=== PATIENT | female | born 2000 | race Caucasian/White ===

== ENCOUNTER 2019-03-30 18:22 | Emergency (ER) | payer OTHER, SELFPAY ==
[2019-03-30 18:27] VITALS: BP 124/84; PULSE 85; RESP 16; TEMP 36.8; O2SAT 100
--- NOTE | 2019-03-30 18:31 | ED.URI ---
HPI - URI/Sore Throat General Chief Complaint: Upper Respiratory Infection Stated Complaint: Sore Throat, Vomiting Time Seen by Provider: 03/30/19 18:26 Source: patient and RN notes reviewed Mode of arrival: ambulatory Limitations: no limitations History of Present Illness HPI Narrative: A 19 y/o female presents to the ED with multiple, worsening, URI symptoms for the past week. She states that she has had a sore throat, nasal congestion, rhinnorrhea, sneezing, and a clear/yellow productive cough for the past week. She also reports that she have been vomiting one time in the morning. She notes that she started on BC 3 days ago and has been having some mild facial, hand, and foot swelling since. She denies any fevers, chills, CP, SOB, N/V/D, or ABD pain. MD elicited complaint: other (Multiple) Onset (ago): week(s) (1) Consistency: progressively worsening Description of mucous: clear and yellow Associated symptoms: rhinorrhea, nasal congestion, sore throat, cough (clear/yellow productive) and other (sneezing) Related Data Home Medications Medication Instructions Recorded Confirmed norgestimate-ethinyl estradiol tablet 03/30/19 [Sprintec (28)] Allergies Allergy/AdvReac Type Severity Reaction Status Date / Time sulfamethoxazole AdvReac Mild Nausea and Verified 03/30/19 18:36 Vomiting trimethoprim AdvReac Mild Nausea and Verified 03/30/19 18:36 Vomiting Review of Systems Review of Systems: All systems reviewed & are unremarkable except as noted in HPI and below Constitutional: Constitutional: Denies chills and Denies fever(s) ENT: Denies nasal congestion, Denies nasal discharge, Denies sore throat and Reports other (sneezing) Cardiovascular: Cardiovascular: Denies chest pain Respiratory: Respiratory: Reports cough (clear/yellow productive) and Denies dyspnea Gastrointestinal: Gastrointestinal: Denies abdominal pain, Denies diarrhea, Denies nausea and Denies vomiting PMF Past Medical History Medical History (Updated 03/30/19 @ 18:50 by Bernard Meyers) Healthy female Surgical History Surgical History (Updated 03/30/19 @ 18:50 by Bernard Meyers) No history of previous surgery Social History Social History (Updated 03/30/19 @ 18:50 by Bernard Meyers) Smoking status: Current some day smoker Gender identity (if verbalized by the patient): Female Exam Narrative: Exam Narrative: General appearance: Well-developed, well-nourished Skin: Normal color Head: Normocephalic, nontraumatic Eyes: Clear conjunctiva ENT: Oropharynx normal, ears normal, nose normal Neck: Supple, nontender Chest and respiratory: Airway patent, no respiratory distress, no accessory muscle use Heart: Regular rate/rhythm Abdomen: Soft, nontender, no organomegaly, quiet bowel sounds Vascular: Normal peripheral pulses, normal capillary refill. Musculoskeletal: Normal range of motion, nontender back Neurologic: Alert and oriented ?3, CLINICAL PSYCHOLOGIST LICENSED is normal as tested, no gross motor deficit Course Course Emergency Course: Stable Vital Signs Vital signs: Vital Signs Temperature 36.8 C 03/30/19 18:27 Pulse Rate 85 03/30/19 18:27 Respiratory Rate 16 03/30/19 18:27 Blood Pressure 124/84 03/30/19 18:27 Pulse Oximetry 100 03/30/19 18:27 Temperature 36.8 C 03/30/19 18:27 Pulse Rate 85 03/30/19 18:27 Respiratory Rate 16 03/30/19 18:27 Blood Pressure 124/84 03/30/19 18:27 Pulse Oximetry 100 03/30/19 18:27 MDM - URI/Sore Throat MDM Narrative Medical decision making narrative: Viral pharyngitis, strep throat is my concern. Rapid strep ordered. Further plan to follow Differential Diagnosis Differential diagnosis: Likely uppe
[2019-03-30 19:19] VITALS: BP 118/84; PULSE 70; RESP 15; TEMP 36.7; O2SAT 100
== END 2019-03-30 19:22 | disposition home or self-care (01) ==
LOC: ANHED 18:54
PROVIDERS: Emergency Provider Emergency Medicine
DX: J06.9 Acute upper respiratory infection, unspecified (principal); F17.200 Nicotine dependence, unspecified, uncomplicated
CPT/HCPCS: 99283

== ENCOUNTER 2019-04-01 01:46 | Emergency (ER) | payer OTHER, SELFPAY ==
--- NOTE | ~2019-04-01 | XR_ITS ---
XR chest 2V DATE: 04/01/2019 02:28 INDICATION: Cough, shortness of breath TECHNIQUE: PA and lateral views COMPARISON: None FINDINGS: There is levoscoliosis of the thoracolumbar spine. Normal heart size. No hilar or mediastinal enlargement. No pulmonary infiltrate or consolidation, ple ural effusion or pulmonary vascular congestion or pneumothorax. IMPRESSION: No active cardiopulmonary disease Reviewed, dictated and finalized at location [facility]. [facility]
--- NOTE | 2019-04-01 01:53 | ED.GENADULT ---
HPI - General Adult General Chief complaint: Recheck/Abnormal Lab/Rx Stated complaint: sob and red bumps on throat Time Seen by Provider: 04/01/19 01:51 Source: patient and RN notes reviewed Mode of arrival: ambulatory Limitations: no limitations History of Present Illness HPI narrative: Pt is a 19 y/o female who presents to the ED with c/o a sore throat which began a week ago. Pt was seen yesterday at the ED, but she denies being swabbed for the flu. She reports she was prescribed nasal spray which she has been taking as prescribed. Pt reports she has noticed bumps in the back of her mouth which prompted her to come back to the ED tonight to be evaluated. She also reports a cough, rhinorrhea, and vomiting, but denies any nausea. She reports she has only vomited twice since the onset of her symptoms. MD complaint: Sore throat Onset (ago): week(s) (1 week ago) Location: mouth (throat) Radiation: non-radiation Pain Consistency: constant Relieving factors: none (tried medications without relief) Associated symptoms: cough, nausea/vomiting (vomiting) and other (rhinorrhea) Related Data Home Medications Medication Instructions Recorded Confirmed norgestimate-ethinyl estradiol tablet 03/30/19 [Sprintec (28)] Allergies Allergy/AdvReac Type Severity Reaction Status Date / Time sulfamethoxazole AdvReac Mild Nausea and Verified 03/30/19 18:36 Vomiting trimethoprim AdvReac Mild Nausea and Verified 03/30/19 18:36 Vomiting Review of Systems Review of Systems: All systems reviewed & are unremarkable except as noted in HPI and below ENT: Reports nasal discharge (rhinorrhea) and Reports sore throat Respiratory: Respiratory: Reports cough Gastrointestinal: Gastrointestinal: Denies nausea and Reports vomiting [facility] Past Medical History Medical History (Updated 04/01/19 @ 02:47 by David Bailey DO) Healthy female Surgical History Surgical History (Updated 03/30/19 @ 18:50 by Bernard Meyers) No history of previous surgery Social History Social History (Updated 03/30/19 @ 18:50 by Bernard Meyers) Smoking status: Current some day smoker Gender identity (if verbalized by the patient): Female Exam Narrative: Exam Narrative: APPEARANCE: No acute distress, nontoxic, resting in bed EYES: EOMI HEENT: Normocephalic, atraumatic, TMs clear bilaterally, bilateral turbinates boggy, erythema the posterior pharynx and tonsils, minimal white exudate, uvula midline, no trismus, tolerating own secretions RESPIRATORY: No respiratory distress Clear to auscultation bilaterally with no rhonchi wheezing or rales. CARDIOVASCULAR: Regular rate and rhythm without murmurs rubs or gallops. ABDOMINAL: Soft, nontender, nondistended, no rebound or guarding MUSCULOSKELETAl: Moves all extremities. No clubbing, cyanosis or edema. NEURO: Awake and alert. Following commands, speech normal, no focal deficits SKIN:: Warm, dry. No rashes lesions or abrasions PSYCHIATRIC: Normal affect/mood, Course Course Emergency Course: Discussed with patient results of workup and diagnosis. Discussed need for follow-up with primary care, proper use of medication, and reasons to return to the emergency department. Patient understands and agrees to current treatment plan Vital Signs Vital signs: Vital Signs Temperature 98.3 F 04/01/19 01:57 Pulse Rate 84 04/01/19 01:57 Respiratory Rate 16 04/01/19 01:57 Blood Pressure 124/86 04/01/19 01:57 Pulse Oximetry 100 04/01/19 01:57 Temperature 98.3 F 04/01/19 01:57 Pulse Rate 84 04/01/19 01:57 Respiratory Rate 16 04/01/19 01:57 Blood Pressure 124/86 04/01/19 01:57 Pulse Oximetry 100 04/01/19 01:57 Medical Decision Making Vital Signs Vital Signs: Vital Signs Temperature 98.3 F 04/01/19 01:57 Pulse Rate 84 04/01/19 01:57 Respiratory Rate 16 04/01/19 01:57 Blood Pressure 124/86 04/01/19 01:57 Pulse Oximetry 100 04/01/19 01:57 Temperature 98.3 F
[2019-04-01 01:57] VITALS: BP 124/86; PULSE 84; RESP 16; TEMP 36.8; O2SAT 100
[2019-04-01 03:06] VITALS: BP 112/88; PULSE 76; RESP 19; TEMP 36.4; O2SAT 100
[2019-04-01] MEDS: AMOXICILLIN 500 MG CAPSULE PO (03:07)
== END 2019-04-01 03:07 | disposition home or self-care (01) ==
PROVIDERS: Emergency Provider Emergency Medicine
DX: J02.9 Acute pharyngitis, unspecified (principal); F17.200 Nicotine dependence, unspecified, uncomplicated
CPT/HCPCS: 71046; 87081; 87804; 87880; 99283; A9270

== ENCOUNTER 2019-10-07 19:42 | Emergency (ER) | payer OTHER, SELFPAY ==
[2019-10-07 19:44] VITALS: BP 132/83; PULSE 103; RESP 19; TEMP 36.3; O2SAT 100
--- NOTE | 2019-10-07 20:03 | ED.FEMALEGU ---
HPI - Female Genitourinary General Chief complaint: Urogenital-Female Stated complaint: urinary frequency Time Seen by Provider: 10/07/19 19:51 History of Present Illness HPI Narrative: She reports urinary frequency and dysuria for the past week. The is associaed with low back pain. No fever, nausea, vomiting, vaginal dyscharge, bleeding. Related Data Home Medications Medication Instructions Recorded Confirmed No Home Medications 10/07/19 10/07/19 Allergies Allergy/AdvReac Type Severity Reaction Status Date / Time sulfamethoxazole AdvReac Mild Nausea and Verified 03/30/19 18:36 Vomiting trimethoprim AdvReac Mild Nausea and Verified 03/30/19 18:36 Vomiting Review of Systems Review of Systems: All systems reviewed & are unremarkable except as noted in HPI and below Constitutional: Constitutional: Denies chills Cardiovascular: Cardiovascular: Denies chest pain Respiratory: Respiratory: Denies dyspnea Gastrointestinal: Gastrointestinal: Denies abdominal pain Genitourinary: Genitourinary: Denies hematuria, Reports nocturia and Reports dysuria Musculoskeletal: Musculoskeletal: Reports back pain [facility] Past Medical History Medical History Healthy female Surgical History Surgical History No history of previous surgery Social History Social History Smoking status: Current some day smoker Gender identity (if verbalized by the patient): Female Exam Const: General: healthy appearing, no acute distress and alert Orientation/consciousness: patient oriented x3 HENMT: Head: normal to inspection Resp: Effort & Inspection: normal respiratory effort Auscultation: clear to auscultation bilaterally Cardio: Rate: regular rate Rhythm: regular rhythm GI: GI Palp: Yes Soft to palpation and Yes Tenderness to palpation present (GI) : External Female Exam: normal external appearance Speculum Exam - Vagina: normal appearance of the vagina and abnormal vaginal discharge Bimanual exam- vagina & uterus: no cervical motion tenderness Course Vital Signs Vital signs: Vital Signs Temperature 36.3 C L 10/07/19 19:44 Pulse Rate 103 H 10/07/19 19:44 Respiratory Rate 19 10/07/19 19:44 Blood Pressure 132/83 10/07/19 19:44 Pulse Oximetry 100 10/07/19 19:44 Temperature 36.3 C L 10/07/19 19:44 Pulse Rate 88 10/07/19 22:20 Respiratory Rate 18 10/07/19 22:20 Blood Pressure 130/78 10/07/19 22:20 Pulse Oximetry 99 10/07/19 22:20 MDM - Female Genitourinary Differential Diagnosis Differential diagnosis: Likely urinary tract infection, bacterial vaginosis, trichomoniasis and cervicitis Medical Records Attestation: I reviewed the patient's medical records. Lab Data Attestation: I reviewed the patient's lab results. Result diagrams: 10/07/19 20:42 10/07/19 20:42 Labs: Lab Results 10/07/19 10/07/19 10/07/19 Range/Units 20:00 20:42 20:42 WBC 8.2 (4.5-10.0) K/mm3 RBC 4.62 (4.2-5.4) M/mm3 Hgb 14.1 (12.0-15.0) g/dL Hct 41.6 (37.0-47.0) % MCV 90.0 (80-100) fl MCH 30.5 (26-34) pg MCHC 33.9 (32-36) g/dl RDW 12.9 (11.5-14.5) % Plt Count 285 (150-375) k/mm3 MPV 11.4 H (7.4-10.4) fl Immature Gran % (Auto) 0.4 (0-0.5) % Neut % (Auto) 57.3 (45.5-73.1) % Lymph % (Auto) 30.3 (18.3-44.2) % [place] % (Auto) 7.8 (2.6-8.5) % Eos % (Auto) 2.9 (0-4.4) % Baso % (Auto) 1.3 H (0.2-1.2) % Lymph # (Auto) 2.49 (0.9-3.2) K/mm3 [place] # (Auto) 0.6 (0.1-0.6) K/mm3 Eos # (Auto) 0.2 (0-0.3) K/mm3 Baso # (Auto) 0.1 (0.0-0.1) K/mm3 Abs Immat Gran (auto) 0.03 (0.00-0.031) K/mm3 Absolute Neuts (auto) 4.7 (1.3-6.7) K/mm3 Absolute Nucleated RBC 0.0 (0.0-0.012) K/mm3 Nucleated RBC % 0.0 (0.0-0
[2019-10-07 20:13] LABS: Add Urine Microscopic? YES; Amorphous Sediment Urine Few; Appearance Urine Cloudy (Clear); Bacteria Urine Trace /hpf; Bilirubin Urine Negative (Negative); Blood Urine 2+ (Negative); Color Urine Yellow (Yellow); Glucose Urine UA Negative (Negative); Ketones Urine Negative (Negative); Leukocyte Esterase Ur Negative LEU/UL (Negative); Mucus Urine Rare /lpf; Nitrate Urine Negative (Negative); Protein Urine Negative (Negative); RBC Urine 0-2 /hpf (0-2); Specific Grav Ur 1.017 (1.001-1.035); Squamous Epithelial Cell Urine Many /hpf (Few); WBC Urine 0-3 /hpf
[2019-10-07 20:50] LABS: Basophils Absolute Auto 0.1 K/mm3 (0.0-0.1); Basophils Percent Auto 1.3 % (0.2-1.2); Eosinophils Absolute Auto 0.2 K/mm3 (0-0.3); Eosinophils Percent Auto 2.9 % (0-4.4); Hematocrit 41.6 % (37.0-47.0); Hemoglobin 14.1 g/dL (12.0-15.0); Immature Granulocyte Absolute 0.03 K/mm3 (0.00-0.031); Immature Granulocyte Percent A 0.4 % (0-0.5); Lymphocytes Absolute Auto 2.49 K/mm3 (0.9-3.2); Lymphocytes Percent Auto 30.3 % (18.3-44.2); Mean Corpuscular HGB Conc 33.9 g/dl (32-36); Mean Corpuscular Hemoglobin 30.5 pg (26-34); Mean Platelet Volume 11.4 fl (7.4-10.4); Monocytes Absolute Auto 0.6 K/mm3 (0.1-0.6); Monocytes Percent Auto 7.8 % (2.6-8.5); Neutrophils Absolute Auto 4.7 K/mm3 (1.3-6.7); Neutrophils Percent Auto 57.3 % (45.5-73.1); Platelet Count Result 285 k/mm3 (150-375); Red Blood Count 4.62 M/mm3 (4.2-5.4); Red Cell Distribution Width 12.9 % (11.5-14.5); White Blood Count 8.2 K/mm3 (4.5-10.0)
[2019-10-07] MEDS: SODIUM CHLORIDE 0.9% IV 1,000 ML 999 ML IV CONT (20:50)
[2019-10-07 21:01] LABS: Alanine Aminotransferase 12 U/L (4-35); Albumin Level 4.7 g/dL (3.5-5.1); Alkaline Phosphatase 50 U/L (38-126); Anion Gap 12.8 mmol/L (7-16); Aspartate Amino Transferase 23 U/L (14-36); Bilirubin,Total 0.4 mg/dL (0.2-1.3); Blood Urea Nitrogen 15 mg/dL (7-17); Calcium 9.4 mg/dL (8.4-10.2); Carbon Dioxide 27 mmol/L (22-30); Chloride 101 mmol/L (98-107); Creatine Kinase 62 U/L (30-135); Estimated CRCL calculation 72 ml/min; Estimated Glomerular Filt Rate > 60; Glucose 85 mg/dL (65-105); Potassium 3.8 mmol/L (3.4-5.0); Sodium 137 mmol/L (137-145)
[2019-10-07] MEDS: cefTRIAXone 250 MG VIAL IM (21:42)
[2019-10-07] MEDS: AZITHROMYCIN 250 MG TABLET 1000 MG PO (21:43)
[2019-10-07] MEDS: metroNIDAZOLE 250 MG TABLET 2000 MG PO (21:43)
[2019-10-07 22:20] VITALS: BP 130/78; PULSE 88; RESP 18; O2SAT 99
== END 2019-10-07 22:20 | disposition home or self-care (01) ==
PROVIDERS: Emergency Provider Emergency Medicine
DX: N72 Inflammatory disease of cervix uteri (principal); F17.200 Nicotine dependence, unspecified, uncomplicated
CPT/HCPCS: 36415; 80053; 81001; 81025; 82550; 85025; 87070; 87491; 87591; 87808; 96360; 96372; 99284; A9270; J0696; J7030

== ENCOUNTER 2019-11-09 22:20 | Emergency (ER) | payer OTHER, SELFPAY ==
[2019-11-09 22:22] VITALS: BP 132/83; PULSE 103; RESP 19; TEMP 36.2; O2SAT 98
[2019-11-09 22:42] LABS: Basophils Absolute Auto 0.1 K/mm3 (0.0-0.1); Basophils Percent Auto 0.9 % (0.2-1.2); Eosinophils Absolute Auto 0.1 K/mm3 (0-0.3); Eosinophils Percent Auto 1.3 % (0-4.4); Hematocrit 45.9 % (37.0-47.0); Hemoglobin 15.8 g/dL (12.0-15.0); Immature Granulocyte Absolute 0.04 K/mm3 (0.00-0.031); Immature Granulocyte Percent A 0.4 % (0-0.5); Lymphocytes Absolute Auto 2.46 K/mm3 (0.9-3.2); Lymphocytes Percent Auto 22.5 % (18.3-44.2); Mean Corpuscular HGB Conc 34.4 g/dl (32-36); Mean Corpuscular Hemoglobin 30.9 pg (26-34); Mean Corpuscular Volume 89.6 fl (80-100); Mean Platelet Volume 11.6 fl (7.4-10.4); Monocytes Absolute Auto 0.8 K/mm3 (0.1-0.6); Monocytes Percent Auto 6.9 % (2.6-8.5); Neutrophils Absolute Auto 7.4 K/mm3 (1.3-6.7); Platelet Count Result 279 k/mm3 (150-375); Red Blood Count 5.12 M/mm3 (4.2-5.4); Red Cell Distribution Width 12.6 % (11.5-14.5); White Blood Count 10.9 K/mm3 (4.5-10.0)
[2019-11-09 22:49] LABS: Add Urine Microscopic? YES; Amorphous Sediment Urine Moderate; Appearance Urine Cloudy (Clear); Bacteria Urine Trace /hpf; Bilirubin Urine Negative (Negative); Blood Urine Negative (Negative); Color Urine Yellow (Yellow); Glucose Urine UA Negative (Negative); Ketones Urine 1+ mg/dL (Negative); Leukocyte Esterase Ur Negative LEU/UL (Negative); Mucus Urine Heavy /lpf; Nitrate Urine Negative (Negative); Protein Urine 1+ mg/dL (Negative); RBC Urine 0-2 /hpf (0-2); Specific Grav Ur 1.024 (1.001-1.035); Squamous Epithelial Cell Urine Moderate /hpf (Few); WBC Urine 0-3 /hpf
[2019-11-09 22:55] LABS: Alanine Aminotransferase 14 U/L (4-35); Albumin Level 5.2 g/dL (3.5-5.1); Alkaline Phosphatase 63 U/L (38-126); Anion Gap 9 mmol/L (8-16); Aspartate Amino Transferase 23 U/L (14-36); Bilirubin,Total 0.9 mg/dL (0.2-1.3); Blood Urea Nitrogen 12 mg/dL (7-17); Calcium 9.6 mg/dL (8.4-10.2); Carbon Dioxide 25 mmol/L (22-30); Chloride 102 mmol/L (98-107); Estimated CRCL calculation 81 ml/min; Estimated Glomerular Filt Rate > 60; Glucose 86 mg/dL (65-105); Lipase 50 U/L (23-300); Sodium 136 mmol/L (137-145)
--- NOTE | 2019-11-09 23:15 | PC.NURSE ---
report received at this time. pt resting on stretcher, denies any needs/concerns. will continue to monitor pt for baseline status changes.
--- NOTE | 2019-11-09 23:18 | ED.ABDPAIN ---
HPI - Abdominal Pain General Chief Complaint: Abdominal Pain Stated Complaint: MY OVARIAN CYST JUST RUPTURED Time Seen by Provider: 11/09/19 22:41 History of Present Illness HPI narrative: Sudden left sided burning abdominal pain for the past few hours. No radiation. Associated with mild nausea. She has never had this pain before. She was recently diagnosed with an ovarian cyst and thinks it may have ruptured. No vaginal bleeding, discharge, diarrhea, constipation. Related Data Home Medications Medication Instructions Recorded Confirmed No Home Medications 10/07/19 10/07/19 Allergies Allergy/AdvReac Type Severity Reaction Status Date / Time sulfamethoxazole AdvReac Mild Nausea and Verified 03/30/19 18:36 Vomiting trimethoprim AdvReac Mild Nausea and Verified 03/30/19 18:36 Vomiting nitrofurantoin AdvReac Nausea and Verified 11/09/19 22:49 [From Macrobid] Vomiting Review of Systems Review of Systems: All systems reviewed & are unremarkable except as noted in HPI and below Constitutional: Constitutional: Denies chills, Denies fever(s) and Denies weakness ENT: Denies dizziness Cardiovascular: Cardiovascular: Denies chest pain Respiratory: Respiratory: Denies dyspnea Gastrointestinal: Gastrointestinal: Reports abdominal pain, Denies constipation, Denies diarrhea, Reports nausea and Denies vomiting Genitourinary: Genitourinary: Denies abnormal vaginal bleeding, Denies hematuria, Denies nocturia, Denies dysuria, Reports pelvic pain and Denies vaginal discharge Musculoskeletal: Musculoskeletal: Denies back pain Neurologic: Denies dizziness and Denies weakness PMF Past Medical History Medical History Healthy female Surgical History Surgical History No history of previous surgery Social History Social History Smoking status: Current some day smoker Gender identity (if verbalized by the patient): Female Exam Const: General: healthy appearing, no acute distress and alert Orientation/consciousness: patient oriented x3 HENMT: Head: normal to inspection Chest: Chest palpation & inspection: tenderness Resp: Effort & Inspection: normal respiratory effort Auscultation: clear to auscultation bilaterally, no rales, no rhonchi and no wheezes Cardio: Jugular venous distension: no JVD Rate: regular rate Rhythm: regular rhythm Heart sounds: no murmurs GI: Inspection: non-distended GI Palp: Yes Soft to palpation and Yes Tenderness to palpation present (GI) (suprapubic) Skin: General skin exam: normal color Neuro: General: patient oriented x3 and moves all extremities Speech: normal speech Gait exam (Neuro): Normal gait present Extrem: General: normal to inspection and no edema Psych: Appearance: well kempt Affect: normal affect Procedures Other Procedure Procedure 1: Other Procedure: Bedside US No significant free fluid in the pelvis. limited by empty bladder Course Vital Signs Vital signs: Vital Signs Temperature 36.2 C L 11/09/19 22:22 Pulse Rate 103 H 11/09/19 22:22 Respiratory Rate 19 11/09/19 22:22 Blood Pressure 132/83 11/09/19 22:22 Pulse Oximetry 98 11/09/19 22:22 Temperature 36.2 C L 11/09/19 22:22 Pulse Rate 77 11/10/19 01:31 Respiratory Rate 18 11/10/19 01:31 Blood Pressure 98/72 L 11/10/19 01:31 Pulse Oximetry 100 11/10/19 01:31 MDM - Abdominal Pain MDM Narrative Medical decision making narrative: Labs reassuring. Exam benign. Medical Records Attestation: I reviewed the patient's medical records. Lab Data Attestation: I reviewed the patient's lab results. Result diagrams: 11/09/19 22:31 11/09/19 22:31 Labs: Lab Results 11/09/19 11/09/19 11/09/19 Range/Units 22:31 22:31 22:31 WBC 10.9 H (4.5-10.0)
[2019-11-09] MEDS: KETOROLAC 30 MG/ML VIAL (*BKC) IV PUSH (23:58)
[2019-11-09 23:59] VITALS: BP 107/74; PULSE 65; RESP 18; O2SAT 100
[2019-11-10 01:31] VITALS: BP 98/72; PULSE 77; RESP 18; O2SAT 100
== END 2019-11-10 01:32 | disposition home or self-care (01) ==
PROVIDERS: Emergency Provider Emergency Medicine
DX: R10.32 Left lower quadrant pain (principal); F17.200 Nicotine dependence, unspecified, uncomplicated
CPT/HCPCS: 36415; 80053; 81001; 81025; 83690; 85025; 96374; 99284; J1885

== ENCOUNTER 2019-11-26 07:17 | Emergency (ER) | payer OTHER, SELFPAY ==
[2019-11-26 07:22] VITALS: BP 119/87; PULSE 103; RESP 18; TEMP 36.4; O2SAT 100
--- NOTE | 2019-11-26 07:41 | ED.FEMALEGU ---
HPI - Female Genitourinary General Chief complaint: Vaginal Bleeding Stated complaint: 1 wk preg, vag bleeding Time Seen by Provider: 11/26/19 07:32 Source: patient Mode of arrival: ambulatory Limitations: no limitations History of Present Illness HPI Narrative: Pt c/o vaginal bleeding started today now just spotting. Pt states she had a quant hcg done at her ob yesterday and it was an 8 . Pt admits to mild pelvic cramping. Related Data Home Medications Medication Instructions Recorded Confirmed No Home Medications 11/26/19 11/26/19 Allergies Allergy/AdvReac Type Severity Reaction Status Date / Time sulfamethoxazole AdvReac Mild Nausea and Verified 11/26/19 07:26 Vomiting trimethoprim AdvReac Mild Nausea and Verified 11/26/19 07:26 Vomiting nitrofurantoin AdvReac Nausea and Verified 11/26/19 07:26 [From Macrobid] Vomiting Review of Systems Review of Systems: All systems reviewed & are unremarkable except as noted in HPI and below Constitutional: Constitutional: Denies body ache(s), Denies chills, Denies excessive sweating, Denies fatigue, Denies fever(s), Denies headache(s), Denies lethargy, Denies malaise, Denies weakness and Denies weight loss Eyes: Eyes: Denies blurry vision, Denies change in vision and Denies loss of vision ENT: Denies dizziness, Denies ear discharge, Denies headache(s), Denies lip swelling, Denies epistaxis, Denies nasal congestion, Denies neck pain, Denies throat swelling and Denies tongue swelling Cardiovascular: Cardiovascular: Denies chest pain, Denies chest pain at rest, Denies chest pain with activity, Denies diaphoresis, Denies rapid heart rate, Denies edema, Denies irregular heart rhythm, Denies lightheadedness, Denies palpitations, Denies dyspnea and Denies dyspnea on exertion Respiratory: Respiratory: Denies chest congestion, Denies cough, Denies hemoptysis, Denies dyspnea and Denies dyspnea on exertion Gastrointestinal: Gastrointestinal: Denies abdominal pain, Denies melena, Denies hematochezia, Denies diarrhea, Denies nausea, Denies vomiting and Denies hematemesis Musculoskeletal: Musculoskeletal: Denies abnormal gait, Denies deformity, Denies joint swelling, Denies limited range of motion, Denies neck pain and Denies numbness Neurologic: Denies Abnormal speech present, Denies abnormal gait, Denies confusion, Denies dizziness, Denies headache(s), Denies focal weakness, Denies loss of vision, Denies numbness, Denies Other visual disturbances, Denies Sensory deficit (Neuro) and Denies weakness Psychiatric: Psychiatric: Denies confusion, Denies depression, Denies auditory hallucinations, Denies homicidal ideation and Denies suicidal ideation Endocrine: Endocrine: Denies cold intolerance, Denies excessive sweating, Denies fatigue, Denies heat intolerance and Denies palpitations Hematologic/Lymphatic: Hematologic/Lymphatic: Denies easy bleeding and Denies easy bruising Allergic/Immunologic: Allergic/Immunologic: Denies lip swelling, Denies throat swelling and Denies tongue swelling [facility] Social History Social History Smoking status: Current some day smoker Gender identity (if verbalized by the patient): Female Exam Const: General: cooperative, healthy appearing, comfortable, no acute distress, well developed, alert and awake; No confusion Orientation/consciousness: oriented to person, oriented to place, oriented to time, patient oriented x3 and No confusion Limitations: no limitations HENMT: Head: normal to inspection, normocephalic and atraumatic Ears: hearing grossly normal bilaterally, TM normal on the right and TM normal on the left General nose exam: Normal external nose present, Normal nares present and No nasal discharge present Face and sinus: normal facial exam Mouth: Yes Normal oral and palatal mucosa present, Yes lip normal, Yes tongue normal and Yes oropharynx normal Throat: posterior oropharynx no
[2019-11-26 07:57] LABS: Basophils Absolute Auto 0.1 K/mm3 (0.0-0.1); Basophils Percent Auto 0.9 % (0.2-1.2); Eosinophils Absolute Auto 0.1 K/mm3 (0-0.3); Eosinophils Percent Auto 1.6 % (0-4.4); Hematocrit 41.1 % (37.0-47.0); Hemoglobin 14.2 g/dL (12.0-15.0); Immature Granulocyte Absolute 0.02 K/mm3 (0.00-0.031); Immature Granulocyte Percent A 0.3 % (0-0.5); Lymphocytes Absolute Auto 1.72 K/mm3 (0.9-3.2); Mean Corpuscular HGB Conc 34.5 g/dl (32-36); Mean Corpuscular Hemoglobin 30.6 pg (26-34); Mean Corpuscular Volume 88.6 fl (80-100); Mean Platelet Volume 11.3 fl (7.4-10.4); Monocytes Absolute Auto 0.6 K/mm3 (0.1-0.6); Monocytes Percent Auto 8.6 % (2.6-8.5); Neutrophils Absolute Auto 4.9 K/mm3 (1.3-6.7); Neutrophils Percent Auto 65.6 % (45.5-73.1); Platelet Count Result 232 k/mm3 (150-375); Red Blood Count 4.64 M/mm3 (4.2-5.4); Red Cell Distribution Width 12.6 % (11.5-14.5); White Blood Count 7.5 K/mm3 (4.5-10.0)
[2019-11-26 08:02] LABS: Add Urine Microscopic? YES; Appearance Urine Cloudy (Clear); Bacteria Urine Trace /hpf; Bilirubin Urine Negative (Negative); Blood Urine 3+ (Negative); Color Urine Yellow (Yellow); Glucose Urine UA Negative (Negative); Ketones Urine Negative (Negative); Leukocyte Esterase Ur Negative LEU/UL (Negative); Mucus Urine Heavy /lpf; Nitrate Urine Negative (Negative); Protein Urine Negative (Negative); Specific Grav Ur 1.025 (1.001-1.035); Squamous Epithelial Cell Urine Moderate /hpf (Few); Urobilinogen Urine Negative mg/dL (<2.0); WBC Urine 0-3 /hpf
[2019-11-26 08:07] LABS: Alanine Aminotransferase 17 U/L (4-35); Albumin Level 4.4 g/dL (3.5-5.1); Alkaline Phosphatase 47 U/L (38-126); Anion Gap 7 mmol/L (8-16); Aspartate Amino Transferase 25 U/L (14-36); Bilirubin,Total 0.8 mg/dL (0.2-1.3); Blood Urea Nitrogen 14 mg/dL (7-17); Calcium 9.2 mg/dL (8.4-10.2); Carbon Dioxide 23 mmol/L (22-30); Chloride 106 mmol/L (98-107); Estimated CRCL calculation 84 ml/min; Estimated Glomerular Filt Rate > 60; Glucose 89 mg/dL (65-105); Potassium 3.6 mmol/L (3.4-5.0); Sodium 136 mmol/L (137-145)
[2019-11-26 08:24] LABS: Beta HCG Quantitative < 2.39 mIU/ML
[2019-11-26 09:04] VITALS: BP 117/68; PULSE 75; RESP 16; O2SAT 100
== END 2019-11-26 09:05 | disposition home or self-care (01) ==
PROVIDERS: Emergency Provider Emergency Medicine
DX: N93.9 Abnormal uterine and vaginal bleeding, unspecified (principal); F17.200 Nicotine dependence, unspecified, uncomplicated
CPT/HCPCS: 36415; 80053; 81001; 84702; 85025; 99283